=== PATIENT | male | born 1960 | race Caucasian/White ===

== ENCOUNTER 2022-10-04 11:12 | Inpatient (IN) | payer OTHER ==
[2022-10-04 12:29] LABS: BASO % 0.6 % (0-2.0); EOS % 2.7 % (0-4.5); HEMATOCRIT 42.9 % (35.4-49); LYMPH % 24.7 % (8-40); MCH 30.3 pg (25.7-33.7); MCHC 34.9 g/dl (32.0-35.9); MEAN CELL VOLUME 86.9 fl (80-96); MEAN PLT VOLUME 7.3 fl (7.5-11.1); PLATELET COUNT 179 10^3/uL (134-434); RBC 4.93 M/mm3 (4.00-5.60); RDW 13.8 % (11.9-15.9); WHITE BLOOD COUNT 7.1 K/mm3 (4.0-10.0)
[2022-10-04 12:56] LABS: POTASSIUM 4.3 mmol/L (3.5-5.1)
[2022-10-04 12:57] LABS: CALCIUM 9.3 mg/dL (8.5-10.1)
[2022-10-04 12:58] LABS: ALBUMIN 3.6 g/dl (3.4-5.0); BLOOD UREA NITROGEN 15.9 mg/dL (7-18); MAGNESIUM 2.2 mg/dL (1.8-2.4)
[2022-10-04 13:02] LABS: CREATININE 0.9 mg/dL (0.55-1.3)
[2022-10-04 13:03] LABS: BILIRUBIN,TOTAL 0.4 mg/dL (0.2-1); TOT PROT 7.2 g/dl (6.4-8.2)
[2022-10-04 13:43] LABS: INR 1.03 (0.83-1.09)
[2022-10-04 13:46] LABS: ACTIVATED PTT 32.8 SECONDS (25.2-36.5)
[2022-10-04] MEDS ORDERED: ENOXAPARIN NA (PORCINE) 80 MG/0.8 ML DISP.SYRIN SQ ONE ×2 (14:15→14:23)
[2022-10-04] MEDS ORDERED: ACETAMINOPHEN 500 MG TABLET (FP) PO ONE (15:00)
[2022-10-04 17:28] VITALS: BMI 25.7
[2022-10-04] MEDS ORDERED: ENOXAPARIN NA (PORCINE) 80 MG/0.8 ML DISP.SYRIN SQ SCH (17:45)
[2022-10-04] MEDS: ENOXAPARIN NA (PORCINE) 80 MG/0.8 ML DISP.SYRIN SQ SCH (21:30)
[2022-10-05 08:17] LABS: BASO % 0.3 % (0-2.0); EOS % 2.1 % (0-4.5); HEMATOCRIT 39.4 % (35.4-49); HEMOGLOBIN 13.9 GM/dL (11.7-16.9); LYMPH % 24.6 % (8-40); MCH 30.4 pg (25.7-33.7); MCHC 35.1 g/dl (32.0-35.9); MEAN CELL VOLUME 86.5 fl (80-96); MEAN PLT VOLUME 7.5 fl (7.5-11.1); MONO % 5.6 % (3.8-10.2); NEUT % 67.4 % (42.8-82.8); PLATELET COUNT 174 10^3/uL (134-434); RBC 4.56 M/mm3 (4.00-5.60); RDW 13.6 % (11.9-15.9); WHITE BLOOD COUNT 6.7 K/mm3 (4.0-10.0)
[2022-10-05 08:28] LABS: POTASSIUM 3.9 mmol/L (3.5-5.1)
[2022-10-05 08:32] LABS: CALCIUM 8.7 mg/dL (8.5-10.1)
[2022-10-05 08:33] LABS: ALBUMIN 3.3 g/dl (3.4-5.0); BLOOD UREA NITROGEN 11.5 mg/dL (7-18)
[2022-10-05 08:35] LABS: CREATININE 0.7 mg/dL (0.55-1.3)
[2022-10-05 08:37] LABS: BILIRUBIN,TOTAL 0.4 mg/dL (0.2-1); TOT PROT 6.7 g/dl (6.4-8.2)
[2022-10-05] MEDS: ACETAMINOPHEN 325 MG TABLET (FP) PO PRN ×2 (09:30→17:46)
[2022-10-05] MEDS: ENOXAPARIN NA (PORCINE) 80 MG/0.8 ML DISP.SYRIN SQ SCH ×2 (09:30→22:13)
[2022-10-06] MEDS: ACETAMINOPHEN 325 MG TABLET (FP) PO PRN (08:59)
[2022-10-06] MEDS: ENOXAPARIN NA (PORCINE) 80 MG/0.8 ML DISP.SYRIN SQ SCH ×2 (09:03→22:26)
[2022-10-07 02:28] VITALS: RESP 20
[2022-10-07] MEDS: ENOXAPARIN NA (PORCINE) 80 MG/0.8 ML DISP.SYRIN SQ SCH (09:03)
[2022-10-07] MEDS: APIXABAN 5 MG TABLET PO SCH (22:22)
[2022-10-08] MEDS: APIXABAN 5 MG TABLET PO SCH (09:06)
[2022-10-08 09:07] VITALS: BP 115/68; PULSE 73; TEMP 97.4
== END 2022-10-08 14:31 | disposition home or self-care (01) | DRG 176 ==
LOC: JER 11:12 → JERBED 14:14 → J4W 15:13
PROVIDERS: ADMIT Internal Medicine; ATTEND Internal Medicine
DX: I26.94 Multiple subsegmental thrombotic pulmonary emboli without acute cor pulmonale (principal); R04.2 Hemoptysis; R09.02 Hypoxemia
CPT/HCPCS: 0241U-QW; 36415; 71045-TC-FY; 71275-TC; 80053; 82607; 83735; 84484; 85025; 85610; 85730; 93005; 93010; 93306-TC; 93970-TC; 94761; 99285-25; Q9967